=== PATIENT | male | born 1990 | race Caucasian/White ===

== ENCOUNTER 2017-01-13 21:52 | Emergency (ER) | payer SELFPAY ==
[2017-01-13] MEDS ORDERED: Tobramycin Sulfate 0.3% Ophth Susp 5 ml Bottle ONE (22:30)
[2017-01-13] MEDS ORDERED: Ibuprofen 800 MG TAB ONE (22:40)
[2017-01-13] MEDS ORDERED: HYDROcodone/Acetaminophen 10/325 mg Tablet ONE (22:40)
== END 2017-01-13 22:51 | disposition home or self-care (01) ==
LOC: BURERS 21:52
DX: H60.91 Unspecified otitis externa, right ear (principal); I10 Essential (primary) hypertension
CPT/HCPCS: 99282

== ENCOUNTER 2020-08-21 05:04 | Emergency (ER) | payer SELFPAY | END 2020-08-21 05:30 | disposition home or self-care (01) | LOC: BURERS 05:04 | DX: H60.502 Unspecified acute noninfective otitis externa, left ear (principal); R00.0 Tachycardia, unspecified; I10 Essential (primary) hypertension | CPT/HCPCS: 99282 ==

== ENCOUNTER 2020-08-21 18:13 | Emergency (ER) | payer SELFPAY | END 2020-08-21 19:40 | disposition home or self-care (01) | LOC: BURERS 18:13 | DX: H60.502 Unspecified acute noninfective otitis externa, left ear (principal); I10 Essential (primary) hypertension | CPT/HCPCS: 99282 ==

== ENCOUNTER 2022-03-02 20:14 | Emergency (ER) | payer SELFPAY ==
[2022-03-02] MEDS ORDERED: Ketorolac Tromethamine 60 MG/2 ML VIAL ONE (20:40)
[2022-03-02] MEDS ORDERED: cefTRIAXone\\ROCEPHIN 1 GM VIAL ONE (20:40)
[2022-03-02 20:51] LABS: Bilirubin Small (Negative); Blood, Urine Negative (Negative); Clarity Slightly Cloudy (Clear); Glucose, Urine (Dipstick) 500 mg/dL (Negative); Ketone, Urine 15 mg/dL (Negative); Leukocyte Large (Negative); Nitrite Positive (Negative); Protein, Urine (Dipstick) 100 mg/dL (Neg-Trace); Specific Gravity, Urine 1.015 (1.005-1.030); pH, Urine 5.5 (5.0-9.0)
[2022-03-02 21:01] LABS: Bacteria/HPF 1+ HPF (None Seen); Mucous/LPF 1+ LPF (<2+); RBC/HPF None Seen HPF (0-3); Squamous Epithelial 0-3 HPF (0-3)
== END 2022-03-02 21:15 | disposition home or self-care (01) ==
LOC: BURERS 20:14
DX: N45.1 Epididymitis (principal); I10 Essential (primary) hypertension
CPT/HCPCS: 81003; 81015; 96372; 99284; J0696; J1885

== ENCOUNTER 2022-12-31 09:15 | Emergency (ER) | payer SELFPAY ==
[2022-12-31] MEDS ORDERED: HYDROcodone/Acetaminophen 5/325 mg Tablet ONE (09:30)
== END 2022-12-31 09:32 | disposition home or self-care (01) ==
LOC: BURERS 09:15
DX: K02.9 Dental caries, unspecified (principal); I10 Essential (primary) hypertension; Z79.899 Other long term (current) drug therapy
CPT/HCPCS: 99282

== ENCOUNTER 2023-05-13 20:08 | Emergency (ER) | payer SELFPAY ==
[2023-05-13] MEDS ORDERED: Amoxicillin/Potassium Clav 875 MG TAB ONE (20:37)
[2023-05-13] MEDS ORDERED: Ciprofloxacin 500 MG TAB ONE (20:37)
[2023-05-13] MEDS ORDERED: HYDROcodone/Acetaminophen 5/325 mg Tablet ONE (20:39)
== END 2023-05-13 20:42 | disposition home or self-care (01) ==
LOC: BURERS 20:08
DX: H60.92 Unspecified otitis externa, left ear (principal); I10 Essential (primary) hypertension; Z79.899 Other long term (current) drug therapy
CPT/HCPCS: 99282

== ENCOUNTER 2023-10-30 19:43 | Emergency (ER) | payer SELFPAY ==
[2023-10-30] MEDS ORDERED: Amoxicillin/Potassium Clav 875 MG TAB ONE (20:23)
[2023-10-30] MEDS ORDERED: predniSONE 20 MG TAB ONE (20:24)
== END 2023-10-30 20:27 | disposition home or self-care (01) ==
LOC: BURERS 19:43
DX: T78.40XA Allergy, unspecified, initial encounter (principal); H60.91 Unspecified otitis externa, right ear; H66.91 Otitis media, unspecified, right ear; I10 Essential (primary) hypertension
CPT/HCPCS: 99282; J7512